=== PATIENT | female | born 1995 | race Hispanic/Latino ===

== ENCOUNTER 2024-06-26 13:28 | Outpatient (CLI) | payer BC | END 2024-06-26 13:29 | disposition home or self-care (01) | LOC: BICCT 13:28 | PROVIDERS: ATTEND Internal Medicine Hematology & Oncology | DX: C81.12 Nodular sclerosis Hodgkin lymphoma, intrathoracic lymph nodes (principal); J47.9 Bronchiectasis, uncomplicated | CPT/HCPCS: 71260; 74177 ==

== ENCOUNTER 2025-07-26 13:10 | Outpatient (CLI) | payer BC | END 2025-07-26 13:11 | disposition home or self-care (01) | LOC: CT 13:10 → MERGE 13:10 → CT 13:11 | PROVIDERS: ATTEND Internal Medicine Hematology & Oncology | DX: C81.12 Nodular sclerosis Hodgkin lymphoma, intrathoracic lymph nodes (principal); D70.8 Other neutropenia; N92.4 Excessive bleeding in the premenopausal period; E66.9 Obesity, unspecified; G95.89 Other specified diseases of spinal cord | CPT/HCPCS: 71260; 74177 ==